=== PATIENT | male | born 1960 | race African-American/Black ===

== ENCOUNTER 2016-09-15 10:27 | Emergency (ER) | payer OTHER | END 2016-09-15 16:24 | disposition home or self-care (01) | LOC: D.ER 10:27 | DX: M54.5 Low back pain (principal); M54.16 Radiculopathy, lumbar region; J44.9 Chronic obstructive pulmonary disease, unspecified ==

== ENCOUNTER 2016-09-19 21:15 | Emergency (ER) | payer OTHER | END 2016-09-19 22:16 | disposition home or self-care (01) | LOC: D.ER 21:15 | DX: M54.5 Low back pain (principal); J44.9 Chronic obstructive pulmonary disease, unspecified; F17.200 Nicotine dependence, unspecified, uncomplicated ==

== ENCOUNTER 2016-09-28 09:59 | Emergency (ER) | payer OTHER | END 2016-09-28 13:32 | disposition home or self-care (01) | LOC: D.ER 09:59 | DX: M54.5 Low back pain (principal); J44.9 Chronic obstructive pulmonary disease, unspecified ==

== ENCOUNTER 2017-06-22 09:47 | Emergency (ER) | payer OTHER, MEDICAID | END 2017-06-22 11:21 | disposition home or self-care (01) | LOC: D.ER 09:47 | DX: M54.5 Low back pain (principal); M62.838 Other muscle spasm; J44.9 Chronic obstructive pulmonary disease, unspecified; F17.200 Nicotine dependence, unspecified, uncomplicated ==

== ENCOUNTER 2017-07-03 09:10 | Emergency (ER) | payer OTHER, MEDICAID | END 2017-07-03 11:38 | disposition home or self-care (01) | LOC: D.ER 09:10 | DX: M25.571 Pain in right ankle and joints of right foot (principal); J44.9 Chronic obstructive pulmonary disease, unspecified; F17.200 Nicotine dependence, unspecified, uncomplicated ==

== ENCOUNTER 2017-07-20 09:20 | Emergency (ER) | payer OTHER, MEDICAID | END 2017-07-20 12:37 | disposition home or self-care (01) | LOC: D.ER 09:20 | DX: M54.16 Radiculopathy, lumbar region (principal) ==

== ENCOUNTER 2017-07-30 09:17 | Emergency (ER) | payer OTHER, MEDICAID | END 2017-07-30 10:05 | disposition home or self-care (01) | LOC: D.ER 09:17 | DX: M79.661 Pain in right lower leg (principal); F17.200 Nicotine dependence, unspecified, uncomplicated ==

== ENCOUNTER 2017-08-07 09:27 | Emergency (ER) | payer OTHER, MEDICAID | END 2017-08-07 10:30 | disposition home or self-care (01) | LOC: D.ER 09:27 | DX: M54.5 Low back pain (principal) ==